=== PATIENT | female | born 1960 | race Caucasian/White ===

== ENCOUNTER 2018-06-06 17:47 | Emergency (ER) | payer SELFPAY ==
[~2018-06-06] VITALS: Ht 162.6 cm; Wt 60.0 kg
[~2018-06-06 17:47] MED LIST: ACYCLOVIR800 MG PO; AMOXICILLIN500 MG PO; BACTRIM DS1 TAB PO; BIOTIN1000 MCG PO; CELEXA20 MG PO; EFFEXOR75 MG PO; FLONASE NASAL50 MCG; LISINOPRIL10 MG PO; MAALOX/BEN PO; METRONIDAZOL500 MG PO; PRILOSEC20 MG/CAP PO; PRISTIQ100 MG PO; PRISTIQ50 MG PO; UNABLE TO RECONCILE; VENLAFAXINE100 MG PO; ZOFRAN4 M1 PO; ZOLPIDEM TARTRA10 MG PO
[2018-06-06 19:50] VITALS: BP 132/77
== END 2018-06-06 19:12 | DRG 605 ==
LOC: ED 17:47
DX: S61.512A Laceration without foreign body of left wrist, initial encounter (principal); S43.402A Unspecified sprain of left shoulder joint, initial encounter; F99 Mental disorder, not otherwise specified; F17.210 Nicotine dependence, cigarettes, uncomplicated; X78.9XXA Intentional self-harm by unspecified sharp object, initial encounter; Y04.0XXA Assault by unarmed brawl or fight, initial encounter; Y92.009 Unspecified place in unspecified non-institutional (private) residence as the place of occurrence of the external cause

== ENCOUNTER 2022-02-14 07:29 | Emergency (ER) | payer SELFPAY ==
[~2022-02-14] VITALS: Ht 162.6 cm; Wt 61.3 kg
[2022-02-14 07:44] VITALS: BP 126/81
[2022-02-14 07:45] VITALS: BP 123/82
[2022-02-14 07:49] LABS: HEMATOCRIT 42.3 % (37.0-47.0); IMMATURE GRANULOCYTES 0.3 % (0.0-5.0); MEAN CELL VOLUME 89.8 fL CALC (80.0-100.0); MEAN CORPUSCULAR HGB 29.7 pG CALC (26.0-32.0); MEAN CORPUSCULAR HGB CONC 33.1 g/dL CAL (32.0-36.0); NEUT# 6.32 thou/uL (2.00-7.15); RED BLOOD COUNT 4.71 mill/uL (4.20-5.60); RED CELL DISTRI WIDTH 12.9 % (11.5-15.5)
[2022-02-14 08:00] VITALS: BP 116/73
[2022-02-14 08:15] VITALS: BP 130/78
[2022-02-14 08:15] LABS: ALBUMIN 4.1 g/dL (3.2-5.0); ALKALINE PHOSPHATASE 122 u/l (38-126); BILIRUBIN, TOTAL 0.5 mg/dL (0.0-1.4); BUN 13 mg/dL (8-23); BUN/CREATININE RATIO 22 (12-20 (CALC)); CARBON DIOXIDE 24 mmol/l (22-30); CHLORIDE 107 mmol/l (95-108); CREATININE 0.6 mg/dL (0.5-1.0); GFR FOR AFR.AMER. > 60 ML/MIN (>=60 (CALC)); GFR OTHER RACES > 60 ML/MIN (>=60 (CALC)); POTASSIUM 4.2 mmol/l (3.5-5.1); SGOT/AST 25 u/l (9-36)
[2022-02-14 08:22] LABS: ANION GAP 9 (6-22 (CALC)); SODIUM 136 mmol/l (137-146)
[2022-02-14 08:30] VITALS: BP 118/79
[2022-02-14 13:37] VITALS: BP 118/79
== END 2022-02-14 08:45 | DRG 935 ==
LOC: ED 07:29
PROVIDERS: Family Medicine
DX: T20.29XA Burn of second degree of multiple sites of head, face, and neck, initial encounter (principal); T22.252A Burn of second degree of left shoulder, initial encounter; T21.21XA Burn of second degree of chest wall, initial encounter; T22.212A Burn of second degree of left forearm, initial encounter; T23.242A Burn of second degree of multiple left fingers (nail), including thumb, initial encounter; X03.0XXA Exposure to flames in controlled fire, not in building or structure, initial encounter